=== PATIENT | female | born 1990 | race Caucasian/White ===

== ENCOUNTER 2023-04-13 19:37 | Emergency (ER) | payer MEDICAID ==
[~2023-04-13] VITALS: Ht 162.6 cm; Wt 77.1 kg
[2023-04-13 19:59] VITALS: BP_SYST 125; PULSE 86; RESP 18; TEMP 98.1; O2SAT 100
[2023-04-13 21:30] VITALS: BP_SYST 125; PULSE 86; RESP 18; TEMP 98.1; O2SAT 100
[2023-04-13] MEDS ORDERED: TRAM50TA2 PO (21:40)
[2023-04-13] MEDS ORDERED: IBUP-1969 PO (21:40)
== END 2023-04-13 22:29 | disposition home or self-care (01) ==
LOC: SED 19:37
DX: S62.623A Displaced fracture of middle phalanx of left middle finger, initial encounter for closed fracture (principal); Z79.899 Other long term (current) drug therapy; W22.09XA Striking against other stationary object, initial encounter; Y93.89 Activity, other specified; Y92.89 Other specified places as the place of occurrence of the external cause; Y99.8 Other external cause status
CPT/HCPCS: 73140-TC; 99283